=== PATIENT | female | born 1990 | race African-American/Black ===

== ENCOUNTER 2016-09-16 12:26 | Emergency (ER) | payer MEDICAID ==
[~2016-09-16] VITALS: Ht 170.2 cm; Wt 59.4 kg
[~2016-09-16 12:26] MED LIST: ACETAMINOPHEN-1 EAC1 ORAL; ALBUTEROL SULF8.5 GM INH; ALBUTEROL2.5 MG/3 M INH; CLARITIN10 M2 ORAL; CYCLOBENZAPRINE10 MG ORAL; GUAIFENESIN-CO118 M1 ORAL; GUAIFENESIN1200 MG PO; IBUPROFEN600 MG ORAL; KEFLEX500 MG ORAL; NAPROXEN500 M2 ORAL; NKM; PROAIR HFA8.5 GM INH; PROMETHAZINE-C118 M1 ORAL; PROVERA10 MG ORAL; ROBITUSSIN COU118 M4 PO; ZITHROMAX250 MG ORAL; ZYRTEC-D TABLE1 EACH ORAL
--- NOTE | 2016-09-16 12:50 | Emergency Room Report ---
History of Present Illness General Chief Complaint: Lower Extremity Injury Source: Patient Present Illness HPI 26 female presents to emergency Department complaining of pain, swelling, tenderness 10/ 10 in severity to the right heel x1 week status post kicking a tile wall at the back of her heel. She states pain is exacerbated upon weightbearing. She denies previous injury to the right foot. Patient reports bruising initially which has slowly subsided. Denies numbness tingling or loss of sensation or gross motor movements of the extremities, incontinence of bowel or bladder. Denies CP, Palpitations, LOC, AMS, dizziness, Changes in Vision, Sensation, paresthesias, or a sudden severe headache. Allergies: Coded Allergies: No Known Allergies (Unverified , 06/02/13) Patient History Past Medical History: see triage record Past Surgical History: none Pertinent Family History: none Last Menstrual Period: 12-7 Now: No Reviewed Nursing Documentation: PMH: Agreed, PSxH: Agreed Nursing Documentation-PMH Past Medical History: No History, Except For Hx Cardiac Problems: No Hx Hypertension: No Hx Pacemaker: No Hx Asthma: Yes Hx COPD: No Hx Diabetes: No Hx Cancer: No Hx Gastrointestinal Problems: No Hx Dialysis: No Hx Neurological Problems: Yes - anxiety Hx Cerebrovascular Accident: No Hx Seizures: No Review of Systems All Other Systems: negative except mentioned in HPI Physical Exam Vital Signs Date Time Temp Pulse Resp B/P Pulse Ox O2 Delivery O2 Flow Rate FiO2 09/16/16 12:35 98.4 90 18 123/80 98 Room Air Sp02 EP Interpretation: reviewed, normal General Appearance: no apparent distress, alert, GCS 15, non-toxic Head: normocephalic, atraumatic Eyes: bilateral eye PERRL, bilateral eye normal inspection ENT: hearing grossly normal, normal pharynx, no angioedema, normal voice Neck: full range of motion, supple/symm/no masses Respiratory: chest non-tender, lungs clear, normal breath sounds, speaking full sentences Cardiovascular #1: regular rate, rhythm, no edema Cardiovascular #2: 2+ radial (R), 2+ radial (L), 2+ dorsalis pedis (R), 2+ dorsalis pedis (L) Gastrointestinal: normal bowel sounds, non tender, soft, no guarding, no rebound Rectal: deferred Genitourinary: normal inspection, no CVA tenderness Musculoskeletal: back normal, gait/station normal, normal range of motion, no calf tenderness, swelling - right heel, tender - TTP to right heel Neurologic: alert, oriented x3, responsive, motor strength/tone normal, sensory intact, speech normal Psychiatric: judgement/insight normal, memory normal, mood/affect normal, no suicidal/homicidal ideation Skin: normal color, no rash, warm/dry, well hydrated Lymphatic: no adenopathy Medical Decision Making PA Attestation Dr. Ferrer is my supervising Physician whom patient management has been discussed with. Diagnostic Impression: Primary Impression: Contusion of right heel Qualified Codes: S90.31XA - Contusion of right foot, initial encounter ER Course Pt. presents to the ED c/o of pain x1 week status post kicking a tall with back of her heel. Ddx considered but are not limited to Fracture, dislocation, contusion, Sprain/ Strain/Spasm, . Vital signs: are WNL, pt. is afebrile H&PE are most consistent with contusion possible fracture Will rule out with imaging ORDERS: - X-ray Right foot 3 views - negative for fx, Dislocation, or significant soft tissue injury, per preliminary read in ED by Dr. Ferrer ED INTERVENTIONS: - she is provided with crutches DISCHARGE: At this time pt. is stable for d/c to home. Will provide printed patient care instructions, and any necessary prescriptions. Care plan and follow up instructions have been discussed with the patient prior to discharge. Last Vital Signs Date Time Temp Pulse Resp B/P Pulse Ox O2 Delivery O2 Flow Rate FiO2 09/16/16 12:35 98.4 90 18 123/80 98 Room Air Disposition: HOME, SELF-CARE Condition: Stable Scripts Ibuprofen* (MOTRIN*) 600 Mg Tablet 600 MG ORAL THREE TIMES A DAY, #30 TAB 0 Refills Prov: Suzi Jauregui P.A. 09/16/16 Hydrocodone Bit/Acetaminophen 5-325* (NORCO 5-325*) 1 Each Tablet 1 TAB ORAL Q6H Y for For Pain, #4 TAB 0 Refills Prov: Suzi Jauregui P.A. 09/16/16 Referrals: KEIRY SANTOS,REFERRING (PCP) Patient Instructions: Foot Contusion Additional Instructions: Take medications as directed. Follow up with PCP in 3-5 days Return sooner to ED if new symptoms occur, or current symptoms become worse. Do not drink alcohol, drive, or operate heavy machinery while taking Tyrone as this may cause drowsiness. Suzi Jauregui. Sep 16, 2016 12:50
[2016-09-16] MEDS ORDERED: IBUPROFEN600 MG ORAL (13:38)
[2016-09-16] MEDS ORDERED: NORCO 5-325 TA1 EACH ORAL (13:38)
[2016-09-16 13:44] VITALS: BP 123/80
--- NOTE | 2016-09-17 09:50 | Diagnostic Imaging Report ---
Indication: PAIN Technique: 3 views right foot Comparison: none Findings: There is soft tissue swelling over the head of the fifth metatarsal. No acute fractures. No dislocations. Joint spaces are preserved. Fourth and fifth distal interphalangeal joints are fused-normal anatomic variant. Impression: No acute bony trauma Soft tissue swelling over the fifth metatarsal head
== END 2016-09-16 13:54 | disposition home or self-care (01) ==
LOC: EMR 12:46
DX: S90.31XA Contusion of right foot, initial encounter (principal); W22.09XA Striking against other stationary object, initial encounter; Y92.89 Other specified places as the place of occurrence of the external cause; Y99.8 Other external cause status; J45.909 Unspecified asthma, uncomplicated; F41.9 Anxiety disorder, unspecified
CPT/HCPCS: 99284

== ENCOUNTER 2016-10-18 16:14 | Emergency (ER) | payer MEDICAID ==
[~2016-10-18] VITALS: Ht 170.2 cm; Wt 58.5 kg
[~2016-10-18 16:14] MED LIST changes: +NORCO 5-325 TA1 EACH ORAL
--- NOTE | 2016-10-18 16:41 | Emergency Room Report ---
History of Present Illness General Chief Complaint: Vaginal Source: Patient Present Illness HPI 26-year-old female presents emergency department complaining of vaginal bleeding x2 weeks. Patient states that approximately one year ago when she received Depo-Provera she had a three-week menstrual cycle required her to go to the ER and receive oral medication to stop the bleeding. Patient reports 2 weeks of nonstop vaginal bleeding describes dark red blood and utilizes approximately 3 pads per day. Patient states that the bleeding has begins to minimize however it has not stopped. Patient reports fatigue and increased tiredness. And states that she believes she has always been borderline anemic. Denies rashes, bruises, or lesions. Denies dysuria, frequency, or urgency. Denies CP, Palpitations, LOC, AMS, dizziness, Changes in Vision, Sensation, paresthesias, or a sudden severe headache. Allergies: Coded Allergies: No Known Allergies (Unverified , 06/02/13) Patient History Past Medical History: see triage record Past Surgical History: none Pertinent Family History: none Last Menstrual Period: aug 22, 2016 Now: No Immunizations: UTD Reviewed Nursing Documentation: PMH: Agreed, PSxH: Agreed Nursing Documentation-PMH Past Medical History: No History, Except For Hx Cardiac Problems: No Hx Hypertension: No Hx Pacemaker: No Hx Asthma: Yes Hx COPD: No Hx Diabetes: No Hx Cancer: No Hx Gastrointestinal Problems: No Hx Dialysis: No Hx Neurological Problems: Yes - anxiety Hx Cerebrovascular Accident: No Hx Seizures: No Review of Systems All Other Systems: negative except mentioned in HPI Physical Exam Vital Signs Date Time Temp Pulse Resp B/P Pulse Ox O2 Delivery O2 Flow Rate FiO2 10/18/16 16:18 98.4 106 21 116/82 98 Room Air Sp02 EP Interpretation: reviewed, normal General Appearance: no apparent distress, alert, GCS 15, non-toxic Head: normocephalic, atraumatic Eyes: bilateral eye PERRL, bilateral eye normal inspection ENT: hearing grossly normal, normal pharynx, no angioedema, normal voice Neck: full range of motion, supple/symm/no masses Respiratory: chest non-tender, lungs clear, normal breath sounds, speaking full sentences Cardiovascular #1: regular rate, rhythm, no edema Gastrointestinal: normal bowel sounds, non tender, soft, no guarding, no rebound Rectal: deferred Genitourinary: normal inspection, no CVA tenderness, adnexa normal, cervix normal, ext genitalia/vag normal, other - No CMT, + blood in the vaginal vault. Musculoskeletal: back normal, gait/station normal, normal range of motion, non- tender, no calf tenderness Neurologic: alert, oriented x3, responsive, motor strength/tone normal, sensory intact, speech normal Psychiatric: judgement/insight normal, memory normal, mood/affect normal, no suicidal/homicidal ideation Skin: normal color, no rash, warm/dry, well hydrated Lymphatic: no adenopathy Medical Decision Making PA Attestation Dr. gaona is my supervising Physician whom patient management has been discussed with. Diagnostic Impression: Primary Impression: Abnormal uterine bleeding ER Course Pt. presents to the ED c/o vaginal bleeding: x 2 weeks dark red blood with cramping. Ddx considered but are not limited to: Fibroid, ectopic , Malignancy, Spontaneous , , DUB Vital signs: are WNL, pt. is afebrile Pelvic Exam: No CMT, + blood in the vaginal vault. H&PE are most consistent with: DUB ORDERS: - CBC: unremarkable no evidence of significant blood loss or anemia -PT/PTT: WNL -Urine Hcg:Negative -Canceled- Type and Screen: specimen was canceled ED INTERVENTIONS: None at this time. - D/w pt. the results of her laboratory work , in addition to proper follow up with OBGYN. DISCHARGE: At this time pt. is stable for d/c to home. Will provide printed patient care instructions, and any necessary prescriptions. Care plan and follow up instructions have been discussed with the patient prior to discharge. Labs Test 10/18/16 16:47 10/18/16 16:57 Urine Color Pale yellow Urine Appearance Clear Urine pH 8 (4.5-8.0) Urine Specific [place] 1.010 (1.005-1.035) Urine Protein Negative (NEGATIVE) Urine Glucose (UA) Negative (NEGATIVE) Urine Ketones Negative (NEGATIVE) Urine Occult Blood 5+ (NEGATIVE) Urine Nitrite Negative (NEGATIVE) Urine Bilirubin Negative (NEGATIVE) Urine Urobilinogen Normal MG/DL (0.0-1.0) Urine Leukocyte Esterase 1+ (NEGATIVE) Urine RBC 0-2 /HPF (0 - 2) Urine WBC 0-2 /HPF (0 - 2) Urine Squamous Epithelial Cells Moderate /LPF (NONE/OCC) Urine Bacteria Few /HPF (NONE) Urine HCG, Qualitative Negative White Blood Count 4.9 K/UL (4.8-10.8) Red Blood Count 3.97 M/UL (4.20-5.40) Hemoglobin 13.4 G/DL (12.0-16.0) Hematocrit 39.1 % (37.0-47.0) Mean Corpuscular Volume 99 FL (80-99) Mean Corpuscular Hemoglobin 33.8 PG (27.0-31.0) Mean Corpuscular Hemoglobin Concent 34.3 G/DL (32.0-36.0) Red Cell Distribution Width 10.8 % (11.6-14.8) Platelet Count 231 K/UL (150-450) Mean Platelet Volume 7.3 FL (6.5-10.1) Neutrophils (%) (Auto) 49.1 % (45.0-75.0) Lymphocytes (%) (Auto) 44.1 % (20.0-45.0) Monocytes (%) (Auto) 5.7 % (1.0-10.0) Eosinophils (%) (Auto) 0.6 % (0.0-3.0) Basophils (%) (Auto) 0.4 % (0.0-2.0) Prothrombin Time 11.0 SEC (9.30-11.50) Prothromb Time International Ratio 1.1 (0.9-1.1) Activated Partial Thromboplast Time 27 SEC (23-33) Last Vital Signs Date Time Temp Pulse Resp B/P Pulse Ox O2 Delivery O2 Flow Rate FiO2 10/18/16 16:18 98.4 106 21 116/82 98 Room Air Disposition: HOME, SELF-CARE Condition: Stable Scripts Medroxyprogesterone Acet* (PROVERA*) 10 Mg Tablet 10 MG ORAL DAILY, #3 TAB 0 Refills Prov: Suzi Jauregui 10/18/16 Patient Instructions: Abnormal Uterine Bleeding, [id number] Additional Instructions: Take medications as directed. Follow up with OBGYN in 2-3 days Return sooner to ED if new symptoms occur, or current symptoms become worse. Suzi Jauregui Oct 18, 2016 16:41
[2016-10-18 17:11] LABS: BASOPHILS % (AUTO) 0.4 % (0.0-2.0); EOSINOPHILS % (AUTO) 0.6 % (0.0-3.0); LYMPHOCYTES % (AUTO) 44.1 % (20.0-45.0); MEAN CORPUSCULAR HEMOGLOBIN 33.8 PG (27.0-31.0); MEAN CORPUSCULAR HGB CONC 34.3 G/DL (32.0-36.0); MEAN CORPUSCULAR VOLUME 99 FL (80-99); MEAN PLATELET VOLUME 7.3 FL (6.5-10.1); MONOCYTES % (AUTO) 5.7 % (1.0-10.0); NEUTROPHILS % (AUTO) 49.1 % (45.0-75.0); PLATELET COUNT 231 K/UL (150-450); RED BLOOD COUNT 3.97 M/UL (4.20-5.40); RED CELL DISTRIBUTION WIDTH 10.8 % (11.6-14.8); WHITE BLOOD COUNT 4.9 K/UL (4.8-10.8)
[2016-10-18 17:21] VITALS: BP 119/85
[2016-10-18 17:22] LABS: APPEARANCE,URINE CLEAR; KETONES,URINE NEGATIVE (NEGATIVE); LEUKOCYTE ESTERASE ,URINE 1+ (NEGATIVE); NITRITE,URINE NEGATIVE (NEGATIVE); PH,URINE 8 (4.5-8.0); PROTEIN,URINE NEGATIVE (NEGATIVE); UROBILINOGEN,URINE NORMAL MG/DL (0.0-1.0)
[2016-10-18 17:28] LABS: RBC,URINE 0-2 /HPF (0 - 2); SQUAMOUS EPITHELIAL CELL,UR MODERATE /LPF (NONE/OCC); WBC,URINE 0-2 /HPF (0 - 2)
[2016-10-18 17:29] LABS: BACTERIA,URINE FEW /HPF
[2016-10-18 17:37] LABS: INR 1.1 (0.9-1.1)
[2016-10-18] MEDS ORDERED: PROVERA10 MG ORAL (17:37)
[2016-10-18 17:57] VITALS: BP 119/85
== END 2016-10-18 17:58 | disposition home or self-care (01) ==
LOC: EMR 17:51
DX: N93.9 Abnormal uterine and vaginal bleeding, unspecified (principal); F41.9 Anxiety disorder, unspecified; J45.909 Unspecified asthma, uncomplicated
CPT/HCPCS: 36415; 81003; 81025; 85025; 85610; 85730; 86850; 86900; 86901; 99283

== ENCOUNTER 2017-02-19 12:49 | Emergency (ER) | payer MEDICAID ==
[~2017-02-19] VITALS: Ht 172.7 cm; Wt 61.2 kg
[2017-02-19 13:14] VITALS: BP 124/78
[2017-02-19] MEDS ORDERED: ALBUTEROL SULF8.5 GM INH (13:17)
[2017-02-19] MEDS ORDERED: ZITHROMAX250 MG ORAL (13:17)
[2017-02-19] MEDS ORDERED: ZYRTEC10 MG ORAL (13:17)
--- NOTE | 2017-02-19 13:18 | Emergency Room Report ---
History of Present Illness General Chief Complaint: Pain Source: Patient Present Illness HPI 26 y/o female c/o ear pain and URI sxs x 2 weeks. Assoc sxs include SOB, bilateral ear pain, and sinus congestion. States that she is taking OTC medications w/o relief, name of medications are unknown. States there are no modifying factors and states she also has dental pain and has an appt with dentist in 1 hour. States she currently has mild SOB, inability to take a full breath but declines breathing treatment due to dentist appointment stating she would be ok with an Rx for an inhaler. Denies any current n/v/f/c/d, abd pain, back pain, neck pain, photophobia, phonophobia, CP or headache. Allergies: Coded Allergies: No Known Allergies (Unverified , 06/02/13) Patient History Past Medical History: see triage record Past Surgical History: none Pertinent Family History: none Last Menstrual Period: irreg Now: No Immunizations: UTD Reviewed Nursing Documentation: PMH: Agreed, PSxH: Agreed Nursing Documentation-PMH Hx Cardiac Problems: No Hx Hypertension: No Hx Pacemaker: No Hx Asthma: Yes Hx COPD: No Hx Diabetes: No Hx Cancer: No Hx Gastrointestinal Problems: No Hx Dialysis: No Hx Neurological Problems: Yes - anxiety Hx Cerebrovascular Accident: No Hx Seizures: No Review of Systems All Other Systems: negative except mentioned in HPI Physical Exam Vital Signs Date Time Temp Pulse Resp B/P Pulse Ox O2 Delivery O2 Flow Rate FiO2 02/19/17 12:54 98.8 114 18 120/80 98 Room Air Sp02 EP Interpretation: reviewed, normal General Appearance: no apparent distress, alert, GCS 15, non-toxic Head: normocephalic, atraumatic Eyes: bilateral eye PERRL, bilateral eye normal inspection ENT: hearing grossly normal, normal pharynx, no angioedema, normal voice, nasal congestion, other - Bilateral TMs red and bulging Neck: full range of motion, supple/symm/no masses Respiratory: chest non-tender, rales - ALEX w/ egophony, speaking full sentences Musculoskeletal: gait/station normal Neurologic: alert, oriented x3, responsive, motor strength/tone normal, sensory intact, speech normal Psychiatric: judgement/insight normal, memory normal, mood/affect normal, no suicidal/homicidal ideation Skin: normal color, no rash, warm/dry, well hydrated Medical Decision Making PA Attestation Dr. Hobbs is my supervising physician with whom patient management has been discussed with. Diagnostic Impression: Primary Impression: Otitis media Qualified Codes: H65.113 - Acute and subacute allergic otitis media (mucoid) ( sanguinous) (serous), bilateral Additional Impression: CAP (community acquired pneumonia) ER Course Pt. presents to the ED c/o of cough and congestion Ddx considered but are not limited to bronchitis, pneumonia, viral upper respiratory tract infection Vital signs: are WNL, pt. is afebrile H&PE are most consistent with pneumonia and AOM ORDERS: none required at this time, the diagnosis is clinical ED INTERVENTIONS: None required at this time. DISCHARGE: At this time pt. is stable for d/c to home. Will provide printed patient care instructions, and any necessary prescriptions. Care plan and follow up instructions have been discussed with the patient prior to discharge. Last Vital Signs Date Time Temp Pulse Resp B/P Pulse Ox O2 Delivery O2 Flow Rate FiO2 02/19/17 13:25 98.7 106 17 124/78 99 Room Air Status: unchanged Disposition: HOME, SELF-CARE Condition: Stable Scripts Cetirizine Hcl* (ZYRTEC*) 10 Mg Tablet 10 MG ORAL DAILY, #14 TAB 0 Refills Prov: SABRY,TAMEEM P.A. 02/19/17 Albuterol Sulfate* (ALBUTEROL SULFATE MDI*) 8.5 Gm Hfa.aer.ad 2 PUFF INH Q4H, #1 INH 0 Refills Prov: SABRY,TAMEEM P.A. 02/19/17 Azithromycin* (ZITHROMAX*) 250 Mg Tablet 250 MG ORAL DAILY, #6 TAB 0 Refills Take two tables once daily for 1 day, then one tablet once daily for 4 days. Prov: SABRY,TAMEEM P.A. 02/19/17 Referrals: KEIRY SANTOS,REFERRING (PCP) Additional Instructions: Take medication as directed. Patient advised that most of the time, symptoms start to improve in 7 to 10 days. Patient should return to clinic if their symptoms last more than 10 days, or if your symptoms get better at first but then get worse. Patient instructed to take an [id number] pain reliever to reduce the pain, and to rinse your nose and sinuses with salt water a few times a day. Go to the ER if you experience any: fever higher than 102.5, sudden and severe pain in the face and head, trouble seeing or seeing double, trouble thinking clearly, swelling or redness around one or both eyes, or trouble breathing or a stiff neck. Drink plenty of fluids which include Gatorade and water. Get plenty of rest. Avoid taking medications on an empty stomach. If you have cough avoid dairy and cold beverages. If you have a fever, headache or body aches please take vqro-eqz-xzoyqqe tylenol/motrin/advil unless a prescription for these symptoms have been given. If your symptoms are worsening or you have shortness or breath, severe headaches or chest pain, please call 911 or go to the ER. ERIC VELAZQUEZ Feb 19, 2017 13:18
[2017-02-19 13:25] VITALS: BP 124/78
== END 2017-02-19 13:25 | disposition home or self-care (01) ==
LOC: EMR 13:09
DX: H65.113 Acute and subacute allergic otitis media (mucoid) (sanguinous) (serous), bilateral (principal); J18.9 Pneumonia, unspecified organism
CPT/HCPCS: 99284

== ENCOUNTER 2017-08-17 15:13 | Emergency (ER) | payer MEDICAID ==
[~2017-08-17] VITALS: Ht 162.6 cm; Wt 54.4 kg
[~2017-08-17 15:13] MED LIST changes: +ZYRTEC10 MG ORAL
[2017-08-17 15:25] VITALS: BP 117/76
[2017-08-17] MEDS ORDERED: PROMETHAZINE-D118 ML ORAL (16:04)
[2017-08-17] MEDS ORDERED: FLONASE ALLERG9.9 ML NS (16:04)
[2017-08-17] MEDS ORDERED: PROAIR HFA8.5 GM INH (16:04)
[2017-08-17] MEDS ORDERED: IBUPROFEN600 MG ORAL (16:13)
[2017-08-17 16:36] VITALS: BP 121/72
--- NOTE | 2017-08-17 20:18 | Emergency Room Report ---
History of Present Illness General Chief Complaint: Upper Respiratory Illness Source: Patient Present Illness HPI The patient is a 27-year-old female presenting for cough for the past week. She denies any known sick contacts or recent travel. She admits to having asthma but has not used albuterol as she has run out. She describes pain as an 8/10 dull ache in the chest which occurs with coughing only. Pain does not radiate. She denies any other symptoms including nausea, vomiting, fever, chills, shortness of breath. She does admit to nasal congestion and some sneezing. Allergies: Coded Allergies: No Known Allergies (Unverified , 06/02/13) Patient History Past Medical History: see triage record Pertinent Family History: none Last Menstrual Period: on period Reviewed Nursing Documentation: PMH: Agreed, PSxH: Agreed Nursing Documentation-PMH Past Medical History: No History, Except For Hx Cardiac Problems: No Hx Hypertension: No Hx Pacemaker: No Hx Asthma: Yes Hx COPD: No Hx Diabetes: No Hx Cancer: No Hx Gastrointestinal Problems: No Hx Dialysis: No History Of Psychiatric Problem: Yes - Anxiety Hx Neurological Problems: Yes - anxiety Hx Cerebrovascular Accident: No Hx Seizures: No Review of Systems All Other Systems: negative except mentioned in HPI Physical Exam Vital Signs Date Time Temp Pulse Resp B/P (MAP) Pulse Ox O2 Delivery O2 Flow Rate FiO2 08/17/17 15:25 98.8 16 117/76 97 Room Air 08/17/17 15:25 76 Sp02 EP Interpretation: reviewed, normal General Appearance: no apparent distress, alert, GCS 15, non-toxic Head: normocephalic, atraumatic Eyes: bilateral eye normal inspection, bilateral eye PERRL ENT: hearing grossly normal, normal pharynx, no angioedema, normal voice, nasal congestion Neck: full range of motion, supple/symm/no masses Respiratory: chest non-tender, lungs clear, normal breath sounds, speaking full sentences Cardiovascular #1: regular rate, rhythm, no edema Gastrointestinal: normal bowel sounds, non tender, soft, non-distended, no guarding, no rebound Rectal: deferred Musculoskeletal: back normal, gait/station normal, normal range of motion, non- tender Neurologic: alert, oriented x3, responsive, motor strength/tone normal, sensory intact, speech normal Psychiatric: judgement/insight normal, memory normal, mood/affect normal, no suicidal/homicidal ideation Skin: normal color, no rash, warm/dry, well hydrated Medical Decision Making PA Attestation Dr. Addison is my supervising physician. Patient management was discussed with my supervising physician Diagnostic Impression: Primary Impression: Asthma Qualified Codes: J45.21 - Mild intermittent asthma with (acute) exacerbation Additional Impression: Allergic rhinitis Qualified Codes: J30.2 - Other seasonal allergic rhinitis ER Course The patient is a 27-year-old female presenting for cough for the past week. Differential diagnoses considered but not limited to: Asthma exacerbation, bronchitis, pneumonia, rhinitis Physical exam: Vitals within normal limits. No apparent distress HEENT shows nasal congestion and edema Lungs: Decreased breath sounds bilaterally. Chest is nontender. No respiratory distress. No accessory muscle use. Patient is discharged home with a prescription for albuterol and flonase and cough medication and will followup with PMD. ER precautions are given Last Vital Signs Date Time Temp Pulse Resp B/P (MAP) Pulse Ox O2 Delivery O2 Flow Rate FiO2 08/17/17 16:36 98.8 70 15 121/72 98 Room Air Status: improved Disposition: HOME, SELF-CARE Condition: Improved Scripts Ibuprofen* (MOTRIN*) 600 Mg Tablet 600 MG ORAL Q8H Y for For Pain, #30 TAB 0 Refills Prov: TERZIAN,TOVA P.A. 08/17/17 Fluticasone Propionate (Flonase Allergy Relief) 9.9 Ml [place].susp 1 SPR NS DAILY, #10 ML Prov: TERZIAN,TOVA P.A. 08/17/17 D-Methorphan Hb/Prometh Hcl* (PROMETHAZINE-DM SYRUP*) 118 Ml Syrup 5 ML ORAL Q6H Y for For Cough, #118 ML 0 Refills Prov: TERZIAN,TOVA P.A. 08/17/17 Albuterol Sulfate* (PROAIR HFA*) 8.5 Gm Hfa.aer.ad 2 PUFFS INH Q6H, #8.5 GM 0 Refills Prov: TERZIAN,TOVA P.A. 08/17/17 Referrals: KEIRY SANTOS,REFERRING (PCP) Patient Instructions: Asthma, Adult, Allergic Rhinitis Additional Instructions: I discussed my findings with the patient. All questions and concerns have been answered. Treatment and medication compliance have been addressed. I advised the patient that they need to follow up with PMD in 3-5 days. Return to ED if symptoms worsen, new symptoms arise, or if needed for any reason. Patient verbalized understanding of discharge instructions. TOVA HERNANDEZ Aug 17, 2017 20:18
== END 2017-08-17 16:36 | disposition home or self-care (01) ==
LOC: EMR 16:30
DX: J45.909 Unspecified asthma, uncomplicated (principal); J30.9 Allergic rhinitis, unspecified
CPT/HCPCS: 99284

== ENCOUNTER 2017-09-06 12:39 | Emergency (ER) | payer MEDICAID ==
[~2017-09-06] VITALS: Ht 172.7 cm; Wt 63.0 kg
[~2017-09-06 12:39] MED LIST changes: +FLONASE ALLERG9.9 ML NS; +PROMETHAZINE-D118 ML ORAL
[2017-09-06 12:49] VITALS: BP 109/72
[2017-09-06] MEDS ORDERED: PROMETHAZINE-D118 ML ORAL (13:21)
[2017-09-06] MEDS ORDERED: LORATADINE10 M2 PO (13:21)
[2017-09-06] MEDS ORDERED: VENTOLIN HFA18 GM INH (13:21)
[2017-09-06 13:26] VITALS: BP 109/72
--- NOTE | 2017-09-06 21:17 | Emergency Room Report ---
History of Present Illness General Chief Complaint: Upper Respiratory Illness Source: Patient Present Illness HPI The patient is a 27-year-old female with a history of asthma presenting for 2 weeks of cough. She denies any known sick contacts or recent travel. Pain is a 3/10 dull ache in the chest and occurs with coughing only.She states that she ran out of albuterol which usually helps. She denies any other symptoms including fever, chills, shortness of breath, rash, dizziness Allergies: Coded Allergies: No Known Allergies (Unverified , 06/02/13) Patient History Past Medical History: see triage record Pertinent Family History: none Now: No Reviewed Nursing Documentation: PMH: Agreed, PSxH: Agreed Nursing Documentation-PMH Past Medical History: No History, Except For Hx Cardiac Problems: No Hx Hypertension: No Hx Pacemaker: No Hx Asthma: Yes Hx COPD: No Hx Diabetes: No Hx Cancer: No Hx Gastrointestinal Problems: No Hx Dialysis: No Hx Neurological Problems: Yes - anxiety Hx Cerebrovascular Accident: No Hx Seizures: No Review of Systems All Other Systems: negative except mentioned in HPI Physical Exam Vital Signs Date Time Temp Pulse Resp B/P (MAP) Pulse Ox O2 Delivery O2 Flow Rate FiO2 09/06/17 12:41 98.8 76 17 109/72 96 Room Air Sp02 EP Interpretation: reviewed, normal General Appearance: no apparent distress, alert, GCS 15, non-toxic Head: normocephalic, atraumatic Eyes: bilateral eye normal inspection, bilateral eye PERRL ENT: hearing grossly normal, normal pharynx, no angioedema, normal voice, nasal congestion Neck: full range of motion, supple/symm/no masses Respiratory: chest non-tender, lungs clear, normal breath sounds, speaking full sentences, wheezing - bilat Cardiovascular #1: regular rate, rhythm, no edema Musculoskeletal: back normal, gait/station normal, normal range of motion, non- tender Neurologic: alert, oriented x3, responsive, motor strength/tone normal, sensory intact, speech normal Psychiatric: judgement/insight normal, memory normal, mood/affect normal, no suicidal/homicidal ideation Skin: normal color, no rash, warm/dry, well hydrated Medical Decision Making PA Attestation Dr. Addison is my supervising physician. Patient management was discussed with my supervising physician Diagnostic Impression: Primary Impression: Asthma Qualified Codes: J45.21 - Mild intermittent asthma with (acute) exacerbation ER Course The patient is a 27-year-old female with a history of asthma presenting for 2 weeks of cough. Differential diagnoses considered but not limited to: Asthma exacerbation, bronchitis, pneumonia, anxiety Physical exam: Vitals within normal limits. No apparent distress HEENT exam is unremarkable except for nasal congestion Lungs: Decreased breath sounds bilaterally. Chest is nontender. No respiratory distress. No accessory muscle use. The patient was given a breathing treatment and is feeling much better. Lungs sounds have increased Patient is discharged home with a prescription for albuterol, claritin, and cough medication and will followup with PMD. ER precautions are given Last Vital Signs Date Time Temp Pulse Resp B/P (MAP) Pulse Ox O2 Delivery O2 Flow Rate FiO2 09/06/17 13:26 98.8 76 17 109/72 96 Room Air Status: improved Disposition: HOME, SELF-CARE Condition: Improved Scripts Albuterol Sulfate (VENTOLIN HFA) 18 Gm Hfa.aer.ad 2 PUFFS INH EVERY 6 HOURS, #18 GM 0 Refills Prov: TOVA HERNANDEZ 09/06/17 D-Methorphan Hb/Prometh Hcl* (PROMETHAZINE-DM SYRUP*) 118 Ml Syrup 5 ML ORAL Q6H Y for For Cough, #118 ML 0 Refills Prov: TOVA HERNANDEZ.Turner 09/06/17 Loratadine (LORATADINE) 10 Mg Tablet 10 MG PO DAILY, #14 TAB Prov: TOVA HERNANDEZ.A. 09/06/17 Referrals: KEIRY SANTOS,REFERRING (PCP) Patient Instructions: Asthma, Adult Additional Instructions: I discussed my findings with the patient. All questions and concerns have been answered. Treatment and medication compliance have been addressed. I advised the patient that they need to follow up with PMD in 3-5 days. Return to ED if symptoms worsen, new symptoms arise, or if needed for any reason. Patient verbalized understanding of discharge instructions. TOVA HERNANDEZ Sep 06, 2017 21:17
== END 2017-09-06 13:26 | disposition home or self-care (01) ==
LOC: EMR 13:05
DX: J45.909 Unspecified asthma, uncomplicated (principal)
CPT/HCPCS: 99283

== ENCOUNTER 2018-01-21 11:20 | Emergency (ER) | payer MEDICAID ==
[~2018-01-21] VITALS: Ht 157.5 cm; Wt 56.7 kg
[~2018-01-21 11:20] MED LIST changes: +LORATADINE10 M2 PO; +VENTOLIN HFA18 GM INH
--- NOTE | 2018-01-21 11:54 | Emergency Room Report ---
History of Present Illness General Chief Complaint: Pain Source: Patient Present Illness HPI Patient present with complaints of left ankle pain She reports that she thinks she injured the ankle about one year ago More recently with increased ambulation she's any pain to the lateral part of the ankle wraps around across the front to the medial aspect also has some pain to the back of the ankle Denies any acute recent trauma to it Denies any knee pain Patient reports that she wants to make sure there is nothing wrong with her ankle Allergies: Coded Allergies: No Known Allergies (Unverified , 06/02/13) Patient History Past Medical History: see triage record Pertinent Family History: none Reviewed Nursing Documentation: PMH: Agreed; PSxH: Agreed Nursing Documentation-PMH Hx Cardiac Problems: No Hx Hypertension: No Hx Pacemaker: No Hx Asthma: Yes Hx COPD: No Hx Diabetes: No Hx Cancer: No Hx Gastrointestinal Problems: No Hx Dialysis: No Hx Neurological Problems: Yes - anxiety Hx Cerebrovascular Accident: No Hx Seizures: No Review of Systems All Other Systems: negative except mentioned in HPI Physical Exam Vital Signs Date Time Temp Pulse Resp B/P (MAP) Pulse Ox O2 Delivery O2 Flow Rate FiO2 01/21/18 11:34 98.2 89 20 116/73 96 Room Air 98.2 Sp02 EP Interpretation: reviewed, normal General Appearance: well appearing, no apparent distress Head: normocephalic, atraumatic Eyes: bilateral eye PERRL, bilateral eye EOMI ENT: normal pharynx, no angioedema Neck: supple Respiratory: lungs clear Musculoskeletal: other - Patient has full flexion and extension intact, left ankle, ambulated to the emergency room without focal deficit, I do not appreciate any obvious edema however patient feels there is some swelling compared to right side, neurovascularly intact no ecchymosis Neurologic: alert, oriented x3, motor strength/tone normal Skin: normal color, no rash Lymphatic: no adenopathy Procedures Splinting Splinting : Consent: Verbal Location: Left ankle Pre-Made Type: aircast Splint: sugar-tong Pre-Proc Neuro Vasc Exam: normal Post-Proc Neuro Vasc Exam: normal Patient Tolerated: Well Complications: None Medical Decision Making Diagnostic Impression: Primary Impression: Ankle sprain ER Course Patient presents with somewhat of a fairly chronic pathology However her discomfort has been more acutely uncomfortable imaging is obtained does not show any obvious acute pathology Patient is splinted given her discomfort and provided with outpatient referral Other X-Ray Diagnostic Results Other X-Ray Diagnostic Results : X-Ray ordered: Left ankle # of Views/Limited Vs Complete: 3 View Indication: Pain EP Interpretation: Yes Interpretation: no dislocation, no soft tissue swelling, no fractures Impression: No acute disease Electronically Signed by: Sophie Ferrer DO Last Vital Signs Date Time Temp Pulse Resp B/P (MAP) Pulse Ox O2 Delivery O2 Flow Rate FiO2 01/21/18 11:34 98.2 89 20 116/73 96 Room Air 98.2 Status: improved Disposition: HOME, SELF-CARE Condition: Improved Scripts Ibuprofen* (MOTRIN*) 600 Mg Tablet 600 MG ORAL Q8H PRN for For Pain, #20 TAB 0 Refills Prov: Sophie Ferrer DO 01/21/18 Additional Instructions: Patient is provided with the discharge instructions notified to follow up with primary doctor in the next 2-3 days otherwise return to the er with any worsening symptoms. Please note that this report is being documented using [employer] technology. This can lead to erroneous entry secondary to incorrect interpretation by the dictating instrument. Sophie Ferrer DO January 21, 2018 11:54
[2018-01-21] MEDS ORDERED: IBUPROFEN600 MG ORAL (12:19)
[2018-01-21 12:53] VITALS: BP 116/73
--- NOTE | 2018-01-21 14:22 | Diagnostic Imaging Report ---
Indication: left ankle pain Comparison: None Findings: 3 views of the left ankle obtained. No acute fracture, malalignment, periostitis, or osteochondral defects are identified. Soft tissues are unremarkable. Impression: No acute findings
== END 2018-01-21 12:45 | disposition home or self-care (01) ==
LOC: EMR 12:32
DX: S93.402A Sprain of unspecified ligament of left ankle, initial encounter (principal); X58.XXXA Exposure to other specified factors, initial encounter; Y92.9 Unspecified place or not applicable; J45.909 Unspecified asthma, uncomplicated
CPT/HCPCS: 99283

== ENCOUNTER 2018-02-10 14:07 | Emergency (ER) | payer MEDICAID ==
[~2018-02-10] VITALS: Ht 175.3 cm; Wt 57.2 kg
[2018-02-10 14:16] VITALS: BP 115/78
--- NOTE | 2018-02-10 14:28 | Emergency Room Report ---
History of Present Illness General Chief Complaint: Upper Respiratory Illness Source: Patient, Medical Record Present Illness HPI Patient is a 27-year-old female who presented after increased chest tightness. Patient reports being a smoker and states she smokes marijuana cigarettes laced once daily. She reports of the patient reports subjective fever. The she reports having intermittent chronic cough. She had associated rash to her upper extremities which began prior to onset of cough. Patient reports having increased mucus production. The patient denies being and denies any recent leg pain or swelling. The cough productive of yellow-green sputum. Allergies: Coded Allergies: No Known Allergies (Unverified , 06/02/13) Patient History Past Medical History: see triage record Last Menstrual Period: 02/04/18 Reviewed Nursing Documentation: PMH: Agreed; PSxH: Agreed Nursing Documentation-PMH Past Medical History: No History, Except For Hx Cardiac Problems: No Hx Hypertension: No Hx Pacemaker: No Hx Asthma: Yes Hx COPD: No Hx Diabetes: No Hx Cancer: No Hx Gastrointestinal Problems: No Hx Dialysis: No Hx Neurological Problems: Yes - anxiety Hx Cerebrovascular Accident: No Hx Seizures: No Review of Systems All Other Systems: negative except mentioned in HPI Physical Exam Vital Signs Date Time Temp Pulse Resp B/P (MAP) Pulse Ox O2 Delivery O2 Flow Rate FiO2 02/10/18 14:10 98.7 100 18 115/78 97 Room Air 98.8 General Appearance: well appearing, no apparent distress, alert, GCS 15, thin Head: normocephalic, atraumatic ENT: hearing grossly normal, normal voice Neck: full range of motion, supple Respiratory: no respiratory distress, speaking full sentences Cardiovascular #1: normal peripheral pulses, no edema Gastrointestinal: normal inspection Musculoskeletal: normal inspection, back normal, digits/nails normal, no calf tenderness Neurologic: normal inspection, alert, oriented x3, responsive, buzzle buffer III-XII nml as tested, normal gait Psychiatric: mood/affect normal Skin: no rash Medical Decision Making Diagnostic Impression: Primary Impression: Bronchitis ER Course Patient presented for increased cough.Differential diagnosis included but was not limited to bronchitis, pneumonia, pulmonary embolism, pericarditis, asthma, foreign body. Patient has a benign exam and does not appear to require any Laboratory testing at this time.The patient appears to have a exacerbation of her chronic lung disease. The patient was given breathing treatment.The chest x -ray one view read by radiology showed hyperinflation without evident infiltrate. The patient was advised smoking cessation. She was given prescription for allergy medication as well as cough medication. The patient is advised to follow up with primary care doctor in 1-2 days. Patient is advised to return if any worsening condition or if any changes in status that are concerning. This report is dictated with [employer] registered client associate software which may occasionally lead to discrepancies related to use of this software. Labs Test 02/10/18 14:26 Urine HCG, Qualitative Negative (NEGATIVE) Chest X-Ray Diagnostic Results Chest X-Ray Diagnostic Results : Chest X-Ray Ordered: Yes # of Views/Limited/Complete: 1 View Indication: Chest Pain EP Interpretation: Yes Interpretation: no consolidation, no effusion, no pneumothorax, no acute cardiopulmonary disease Impression: No acute disease Electronically Signed by: Electronically signed by Dr. Alton Hobbs M.D. Last Vital Signs Date Time Temp Pulse Resp B/P (MAP) Pulse Ox O2 Delivery O2 Flow Rate FiO2 02/10/18 14:10 98.7 100 18 115/78 97 Room Air 98.8 Status: improved Disposition: HOME, SELF-CARE Condition: Stable Scripts Loratadine (LORATADINE) 10 Mg Tablet 10 MG PO DAILY, #30 TAB Prov: Alton Hobbs MD 02/10/18 Guaifenesin* (ADULT WAL-TUSSIN*) 100 Mg/5 Ml Liquid 10 ML ORAL Q4H, #200 ML Prov: Alton Hobbs MD 02/10/18 Alton Hobbs MD February 10, 2018 14:28
[2018-02-10] MEDS ORDERED: LORATADINE10 M2 PO (14:30)
[2018-02-10] MEDS ORDERED: Albuterol/Ipratropium 3ml neb HHN ONE (14:30)
[2018-02-10] MEDS ORDERED: ADULT WAL-100 MG/5 M ORAL (14:30)
[2018-02-10 15:18] VITALS: BP 115/78
--- NOTE | 2018-02-11 10:50 | Diagnostic Imaging Report ---
Indication: Dyspnea Comparison: 08/16/2016 A single view chest radiograph was obtained. Findings: Cardiomediastinal appearance is within normal limits for age. Pulmonary vascularity is appropriate. The diaphragmatic contour is smooth and costophrenic angles are sharp. No pleural effusions are identified. The bones are unremarkable. Impression: No acute findings
== END 2018-02-10 15:20 | disposition home or self-care (01) ==
LOC: EMR 14:25
DX: J45.909 Unspecified asthma, uncomplicated (principal)
CPT/HCPCS: 71045; 81025; 94640; 94664; 99284; J7620

== ENCOUNTER 2018-02-22 11:21 | Emergency (ER) | payer MEDICAID ==
[~2018-02-22] VITALS: Ht 172.7 cm; Wt 56.7 kg
[~2018-02-22 11:21] MED LIST changes: +ADULT WAL-100 MG/5 M ORAL
[2018-02-22 11:44] VITALS: BP 108/77
--- NOTE | 2018-02-22 12:23 | Emergency Room Report ---
History of Present Illness General Chief Complaint: Sore Throat Source: Patient Present Illness HPI 27 YO Female presents to the ED c/o 06/25 in severity sore throat s/p multiple episodes of vomiting back to back last night after drinking. Patient denies , denies nausea, abdominal pain or tenderness, constipation or diarrhea. Patient denies blood in her vomit. Patient states that she does not drink regularly. Allergies: Coded Allergies: No Known Allergies (Unverified , 06/02/13) Patient History Past Medical History: see triage record Past Surgical History: none Pertinent Family History: none Last Menstrual Period: 02/07/18 Now: No Reviewed Nursing Documentation: PMH: Agreed; PSxH: Agreed Nursing Documentation-PMH Hx Cardiac Problems: No Hx Hypertension: No Hx Pacemaker: No Hx Asthma: Yes Hx COPD: No Hx Diabetes: No Hx Cancer: No Hx Gastrointestinal Problems: No Hx Dialysis: No Hx Neurological Problems: Yes - anxiety Hx Cerebrovascular Accident: No Hx Seizures: No Review of Systems All Other Systems: negative except mentioned in HPI Physical Exam Vital Signs Date Time Temp Pulse Resp B/P (MAP) Pulse Ox O2 Delivery O2 Flow Rate FiO2 02/22/18 11:44 98.1 73 17 108/77 94 Room Air 98.1 Sp02 EP Interpretation: reviewed, normal General Appearance: no apparent distress, alert, GCS 15, non-toxic Head: normocephalic, atraumatic Eyes: bilateral eye normal inspection, bilateral eye PERRL ENT: hearing grossly normal, normal voice, TMs + canals normal, uvula midline, moist mucus membranes, pharyngeal erythema Neck: full range of motion Respiratory: chest non-tender, lungs clear, normal breath sounds, no wheezing, speaking full sentences Cardiovascular #1: regular rate, rhythm Gastrointestinal: normal bowel sounds, non tender, soft Rectal: deferred Musculoskeletal: back normal, gait/station normal, normal range of motion, non- tender Neurologic: alert, oriented x3, responsive, motor strength/tone normal, sensory intact, speech normal, grossly normal Psychiatric: judgement/insight normal Skin: normal color, no rash, warm/dry, well hydrated Lymphatic: no adenopathy Medical Decision Making PA Attestation Dr. Hobbs is my supervising Physician whom patient management has been discussed with. Diagnostic Impression: Primary Impression: Gastritis Qualified Codes: K29.20 - Alcoholic gastritis without bleeding Additional Impression: Pharyngitis Qualified Codes: J02.9 - Acute pharyngitis, unspecified ER Course 27 YO Female presents to the ED c/o 06/25 in severity sore throat s/p multiple episodes of vomiting back to back last night after drinking. Patient denies , denies nausea, abdominal pain or tenderness, constipation or diarrhea. Patient denies blood in her vomit. Patient states that she does not drink regularly. Ddx considered but are not limited to GE, colitis, acute appy, , SBO, H.pylori, Gastritis, PNA, pericarditis, esophageal tear just to name a few. Vital signs: pt. is afebrile, H&PE are most consistent with Gastritis - no evidence to suggest acute abdomen on physical exam. ORDERS: -Pt. declines testing states she is sure that it was from the ETOH. ED INTERVENTIONS: -None -I do not identify an emergent condition at this time. With current presentation , pt. is stable for close outpatient follow up and conservative treatment. D/ w pt. to return promptly to ED with worsening or new symptoms.- Pt. (and or responsible libertarian) verbalizes' understanding and agreement with proposed treatment plan.proposed treatment plan. DISCHARGE: At this time pt. is stable for d/c to home. Will provide printed patient care instructions, and any necessary prescriptions. Care plan and follow up instructions have been discussed with the patient prior to discharge. Last Vital Signs Date Time Temp Pulse Resp B/P (MAP) Pulse Ox O2 Delivery O2 Flow Rate FiO2 02/22/18 11:44 98.1 73 17 108/77 94 Room Air 98.1 Disposition: HOME, SELF-CARE Condition: Stable Scripts Omeprazole (OMEPRAZOLE) 20 Mg Tablet.dr 20 MG ORAL DAILY for 5 Days, #10 TAB Prov: Suzi Jauregui 02/22/18 Vitamin B Complex (B COMPLEX) 1 Each Tablet 1 TAB ORAL DAILY for 30 Days, #30 TAB 0 Refills Prov: Suzi Jauregui 02/22/18 Ondansetron* (ZOFRAN*) 4 Mg Tablet 4 MG ORAL Q6H PRN for Nausea & Vomiting, #10 TAB Prov: Suzi Jauregui 02/22/18 Lidocaine HCl 2% Viscous (Lidocaine HCl 2% Viscous) 100 Ml Solution 15 ML ORAL QID, #200 ML Prov: Suzi Jauregui 02/22/18 Departure Forms: Return to Work Return to Work Date: Feb 24, 2018 Work Restrictions: None Return to Full Activity: Feb 24, 2018 Patient Instructions: Sore Throat Additional Instructions: Take medications as directed. Follow up with a Primary Care Provider in 3-5 days, even if your symptoms have resolved. --Please review list of primary care clinics, if you do not already have a primary care provider Return sooner to ED if new symptoms occur, or current symptoms become worse. - Please note that this Emergency Department Report was dictated using [employer] agent technology software, occasionally this can lead to erroneous entry secondary to interpretation by the dictation equipment. Suzi Jauregui Feb 22, 2018 12:23
[2018-02-22] MEDS ORDERED: B COMPLEX1 EACH ORAL (12:28)
[2018-02-22] MEDS ORDERED: ZOFRAN4 M3 ORAL (12:28)
[2018-02-22] MEDS ORDERED: LIDOCAINE VISC100 ML ORAL (12:28)
[2018-02-22] MEDS ORDERED: OMEPRAZOLE20 M3 ORAL (12:32)
[2018-02-22 12:41] VITALS: BP 108/77
== END 2018-02-22 12:41 | disposition home or self-care (01) ==
LOC: EMR 12:40
DX: J02.9 Acute pharyngitis, unspecified (principal); J45.909 Unspecified asthma, uncomplicated; K29.70 Gastritis, unspecified, without bleeding
CPT/HCPCS: 99284

== ENCOUNTER 2018-04-13 13:57 | Emergency (ER) | payer MEDICAID ==
[~2018-04-13] VITALS: Ht 172.7 cm; Wt 53.5 kg
[~2018-04-13 13:57] MED LIST changes: +B COMPLEX1 EACH ORAL; +LIDOCAINE VISC100 ML ORAL; +OMEPRAZOLE20 M3 ORAL; +ZOFRAN4 M3 ORAL
[2018-04-13 14:21] VITALS: BP 109/46
[2018-04-13 14:41] LABS: APPEARANCE,URINE CLEAR; BILIRUBIN, URINE NEGATIVE (NEGATIVE); COLOR,URINE PALE YELLOW; GLUCOSE, URINE (UA) NEGATIVE (NEGATIVE); KETONES,URINE NEGATIVE (NEGATIVE); LEUKOCYTE ESTERASE ,URINE 1+ (NEGATIVE); NITRITE,URINE NEGATIVE (NEGATIVE); PH,URINE 6 (4.5-8.0); PROTEIN,URINE NEGATIVE (NEGATIVE); UROBILINOGEN,URINE NORMAL MG/DL (0.0-1.0)
[2018-04-13 14:49] LABS: BASOPHILS % (AUTO) 0.3 % (0.0-2.0); EOSINOPHILS % (AUTO) 1.4 % (0.0-3.0); HEMATOCRIT 43.3 % (37.0-47.0); HEMOGLOBIN 14.5 G/DL (12.0-16.0); LYMPHOCYTES % (AUTO) 12.6 % (20.0-45.0); MEAN CORPUSCULAR VOLUME 99 FL (80-99); MONOCYTES % (AUTO) 6.5 % (1.0-10.0); NEUTROPHILS % (AUTO) 79.1 % (45.0-75.0); PLATELET COUNT 210 K/UL (150-450); RED BLOOD COUNT 4.37 M/UL (4.20-5.40); RED CELL DISTRIBUTION WIDTH 11.1 % (11.6-14.8); WHITE BLOOD COUNT 6.2 K/UL (4.8-10.8)
[2018-04-13 14:59] LABS: ANION GAP 10 mmol/L (5-15); BLOOD UREA NITROGEN 9 mg/dL (7-18); CALCIUM 8.4 MG/DL (8.5-10.1); CARBON DIOXIDE 24 MMOL/L (21-32); CHLORIDE 103 MMOL/L (98-107); CREATININE 0.7 MG/DL (0.55-1.30); POTASSIUM 3.5 MMOL/L (3.5-5.1); SODIUM 137 MMOL/L (136-145)
[2018-04-13 15:10] LABS: ALANINE AMINOTRANSFERASE 15 U/L (12-78); ALBUMIN 3.8 G/DL (3.4-5.0); ALKALINE PHOSPHATASE 81 U/L (46-116); ASPARTATE AMINO TRANSFERASE 15 U/L (15-37); BILIRUBIN,TOTAL 1.2 MG/DL (0.2-1.0); CREATINE KINASE 87 U/L (26-308)
[2018-04-13] MEDS ORDERED: Ketorolac 30mg Inj IV ONE (15:15)
--- NOTE | 2018-04-13 15:28 | Emergency Room Report ---
History of Present Illness General Chief Complaint: Abdominal Pain Source: Patient Present Illness HPI 27-year-old female presents to the emergency department complaining of 9 out of 10 in severity localized lower abdominal/uterine cramping 2 days. Patient reports associated nausea she denies constipation, diarrhea or episodes of vomiting. Patient states that she has a history of having very painful periods with similar symptoms however she was placed on the Depo shot and her symptoms resolved. Patient states that they have now returned she has not been on control for over 3 months. Patient denies fevers or chills, recent travel or ill contacts. Denies dysuria, hematuria, urinary frequency or urgency. Patient denies . Denies vaginal bleeding or discharge. Patient states she is not due for her period for another week. Allergies: Coded Allergies: No Known Allergies (Unverified , 06/02/13) Patient History Past Medical History: see triage record Past Surgical History: none Pertinent Family History: none Now: No Reviewed Nursing Documentation: PMH: Agreed; PSxH: Agreed Nursing Documentation-PMH Hx Cardiac Problems: No Hx Hypertension: No Hx Pacemaker: No Hx Asthma: Yes Hx COPD: No Hx Diabetes: No Hx Cancer: No Hx Gastrointestinal Problems: No Hx Dialysis: No Hx Neurological Problems: Yes - anxiety Hx Cerebrovascular Accident: No Hx Seizures: No Review of Systems All Other Systems: negative except mentioned in HPI Physical Exam Vital Signs Date Time Temp Pulse Resp B/P (MAP) Pulse Ox O2 Delivery O2 Flow Rate FiO2 04/13/18 14:08 98.8 97 18 109/46 96 Room Air 98.8 Sp02 EP Interpretation: reviewed, normal General Appearance: no apparent distress, alert, GCS 15, non-toxic Head: normocephalic, atraumatic Eyes: bilateral eye normal inspection, bilateral eye PERRL ENT: hearing grossly normal, normal voice Neck: full range of motion Respiratory: lungs clear, normal breath sounds, speaking full sentences Cardiovascular #1: regular rate, rhythm Gastrointestinal: normal bowel sounds, non tender, soft, non-distended, no guarding, no rebound Rectal: deferred Genitourinary: normal inspection, no CVA tenderness, adnexa normal Musculoskeletal: back normal, gait/station normal, normal range of motion, non- tender Neurologic: alert, oriented x3, responsive, motor strength/tone normal, sensory intact, normal gait, speech normal, grossly normal Psychiatric: judgement/insight normal Skin: normal color, no rash, warm/dry, well hydrated Medical Decision Making PA Attestation Dr. gaona is my supervising Physician whom patient management has been discussed with. Diagnostic Impression: Primary Impression: Dysmenorrhea ER Course 27-year-old female presents to the emergency department complaining of 9 out of 10 in severity localized lower abdominal/uterine cramping 2 days. Patient reports associated nausea she denies constipation, diarrhea or episodes of vomiting. Patient states that she has a history of having very painful periods with similar symptoms however she was placed on the Depo shot and her symptoms resolved. Patient states that they have now returned she has not been on control for over 3 months. Patient denies fevers or chills, recent travel or ill contacts. Denies dysuria, hematuria, urinary frequency or urgency. Patient denies . Denies vaginal bleeding or discharge. Patient states she is not due for her period for another week. Ddx considered but are not limited to Diverticulitis, acute appy, GE,UTI, ectopic, PID, ovarian cyst or torsion just to name a few. Vital signs: are WNL, pt. is afebrile H&PE are most consistent with Dysmenorrhea, no evidence of acute abdomen, no CVA tenderness, ORDERS: CBC, CMP, lipase, UA, Urine HCG: WNL all unremarkable. ED INTERVENTIONS: -- 1000NS -- Zofran 4mg. DISCHARGE: At this time pt. is stable for d/c to home. Will provide printed patient care instructions, and any necessary prescriptions. Care plan and follow up instructions have been discussed with the patient prior to discharge. Labs Test 04/13/18 14:24 04/13/18 14:42 Urine Color Pale yellow Urine Appearance Clear Urine pH 6 (4.5-8.0) Urine Specific [place] 1.010 (1.005-1.035) Urine Protein Negative (NEGATIVE) Urine Glucose (UA) Negative (NEGATIVE) Urine Ketones Negative (NEGATIVE) Urine Occult Blood Negative (NEGATIVE) Urine Nitrite Negative (NEGATIVE) Urine Bilirubin Negative (NEGATIVE) Urine Urobilinogen Normal MG/DL (0.0-1.0) Urine Leukocyte Esterase 1+ (NEGATIVE) Urine RBC 0-2 /HPF (0 - 2) Urine WBC 0-2 /HPF (0 - 2) Urine Squamous Epithelial Cells Few /LPF (NONE/OCC) Urine Bacteria Occasional /HPF (NONE) Urine HCG, Qualitative Negative (NEGATIVE) White Blood Count 6.2 K/UL (4.8-10.8) Red Blood Count 4.37 M/UL (4.20-5.40) Hemoglobin 14.5 G/DL (12.0-16.0) Hematocrit 43.3 % (37.0-47.0) Mean Corpuscular Volume 99 FL (80-99) Mean Corpuscular Hemoglobin 33.2 PG (27.0-31.0) Mean Corpuscular Hemoglobin Concent 33.5 G/DL (32.0-36.0) Red Cell Distribution Width 11.1 % (11.6-14.8) Platelet Count 210 K/UL (150-450) Mean Platelet Volume 8.4 FL (6.5-10.1) Neutrophils (%) (Auto) 79.1 % (45.0-75.0) Lymphocytes (%) (Auto) 12.6 % (20.0-45.0) Monocytes (%) (Auto) 6.5 % (1.0-10.0) Eosinophils (%) (Auto) 1.4 % (0.0-3.0) Basophils (%) (Auto) 0.3 % (0.0-2.0) Sodium Level 137 MMOL/L (136-145) Potassium Level 3.5 MMOL/L (3.5-5.1) Chloride Level 103 MMOL/L (98-107) Carbon Dioxide Level 24 MMOL/L (21-32) Anion Gap 10 mmol/L (5-15) Blood Urea Nitrogen 9 mg/dL (7-18) Creatinine 0.7 MG/DL (0.55-1.30) Estimat Glomerular Filtration Rate > 60 mL/min (>60) Glucose Level 102 MG/DL (74-106) Calcium Level 8.4 MG/DL (8.5-10.1) Total Bilirubin 1.2 MG/DL (0.2-1.0) Direct Bilirubin 0.3 MG/DL (0.0-0.3) Aspartate Amino Transf (AST/SGOT) 15 U/L (15-37) Alanine Aminotransferase (ALT/SGPT) 15 U/L (12-78) Alkaline Phosphatase 81 U/L (46-116) Total Creatine Kinase 87 U/L (26-308) Total Protein 7.5 G/DL (6.4-8.2) Albumin 3.8 G/DL (3.4-5.0) Globulin 3.7 g/dL Albumin/Globulin Ratio 1.0 (1.0-2.7) Last Vital Signs Date Time Temp Pulse Resp B/P (MAP) Pulse Ox O2 Delivery O2 Flow Rate FiO2 04/13/18 15:15 98.8 04/13/18 14:21 84 18 109/46 96 Room Air Disposition: HOME, SELF-CARE Condition: Stable Scripts Ondansetron (Zofran) 4 Mg Tablet 4 MG ORAL Q6H PRN for Nausea & Vomiting, #15 TAB Prov: Suzi Jauregui 04/13/18 Ibuprofen* (MOTRIN*) 800 Mg Tablet 800 MG ORAL THREE TIMES A DAY, #20 TAB 0 Refills Prov: Suzi Jauregui 04/13/18 Norethindrone-E.estradiol-Iron (Blisovi Fe 1-20 Tablet) 1 Each Tablet 1 EACH PO DAILY for 30 Days, #1 PACK 2 Refills Prov: Suzi Jauregui 04/13/18 Referrals: KEIRY SANTOS,REFERRING (PCP) Suzi Jauregui Apr 13, 2018 15:28
[2018-04-13 15:34] LABS: BILIRUBIN,DIRECT 0.3 MG/DL (0.0-0.3)
[2018-04-13] MEDS ORDERED: ZOFRAN4 M1 ORAL (15:45)
[2018-04-13] MEDS ORDERED: IBUPROFEN800 MG ORAL (15:45)
[2018-04-13] MEDS ORDERED: BLISOVI FE 1-21 EACH PO (15:45)
[2018-04-13 16:56] VITALS: BP 112/52
== END 2018-04-13 16:57 | disposition home or self-care (01) ==
LOC: EMR 14:22
DX: N94.6 Dysmenorrhea, unspecified (principal); J45.909 Unspecified asthma, uncomplicated
CPT/HCPCS: 36415; 80053; 81003; 81025; 82248; 82550; 85025; 96361; 96374; 99284; J1885

== ENCOUNTER 2018-09-03 17:01 | Emergency (ER) | payer MEDICAID ==
[~2018-09-03] VITALS: Ht 175.3 cm; Wt 62.1 kg
[~2018-09-03 17:01] MED LIST changes: +BLISOVI FE 1-21 EACH PO; +IBUPROFEN800 MG ORAL; +ZOFRAN4 M1 ORAL
[2018-09-03 17:44] VITALS: BP 127/75
[2018-09-03] MEDS ORDERED: PEPCID AC20 M2 PO (17:55)
[2018-09-03] MEDS ORDERED: CLARITIN-D 121 EAC1 ORAL (17:55)
[2018-09-03] MEDS ORDERED: BETAMETHASONE D15 GM TP (17:55)
[2018-09-03 18:31] VITALS: BP 130/77
--- NOTE | 2018-09-03 20:06 | Emergency Room Report ---
History of Present Illness General Chief Complaint: Upper Respiratory Illness Source: Patient Present Illness HPI Patient is a 28-year-old female presented after increased cough and nasal congestion. Patient reports having additionally a rash to her left lower extremity. Patient stated this is been present for several weeks. Patient reports that this was itchy. She denies any fever. She had not been having any vomiting. Allergies: Coded Allergies: No Known Allergies (Unverified , 06/02/13) Patient History Last Menstrual Period: 09/01/18 Now: No Nursing Documentation-[facility] Past Medical History: No History, Except For Hx Cardiac Problems: No Hx Hypertension: No Hx Pacemaker: No Hx Asthma: Yes Hx COPD: No Hx Diabetes: No Hx Cancer: No Hx Gastrointestinal Problems: No Hx Dialysis: No Hx Neurological Problems: Yes - anxiety Hx Cerebrovascular Accident: No Hx Seizures: No Physical Exam Vital Signs Date Time Temp Pulse Resp B/P (MAP) Pulse Ox O2 Delivery O2 Flow Rate FiO2 09/03/18 17:08 98.4 62 20 108/69 97 Room Air 09/03/18 17:44 97 Medical Decision Making Diagnostic Impression: Primary Impression: Upper respiratory infection Additional Impression: Lichen simplex chronicus ER Course Patient presented for cough. Differential diagnosis included but was not limited to bronchitis, pneumonia, pulmonary embolism, pericarditis, asthma, foreign body. Patient has a benign exam and does not appear to require any further imaging or laboratory testing at this time. Patient was additionally noted to have some rash to her lower extremities.This appears to be a patch of thickened skin with some lichenification. Patient was prescribed topical steroid cream. She is advised dermatology follow-up. Patient appears to have an upper respiratory infection. She was given medications for symptomatic treatment. The patient is advised to follow up with primary care doctor. Patient is advised to return if any worsening condition or if any changes in status that are concerning. This report is dictated with [employer] heel painter software which may occasionally lead to discrepancies related to use of this software. Last Vital Signs Date Time Temp Pulse Resp B/P (MAP) Pulse Ox O2 Delivery O2 Flow Rate FiO2 09/03/18 18:31 98.0 20 130/77 98 Room Air 09/03/18 17:44 75 97 Status: improved Disposition: HOME, SELF-CARE Condition: Stable Scripts Betamet Diprop/Prop Gly (BETAMETHASONE DP AUG 0.05% CRM) 15 Gm Cream..g. 15 GM TP DAILY for 4 Days, #15 GM Prov: Alton Hobbs MD 09/03/18 Famotidine (PEPCID AC) 20 Mg Tablet 20 MG PO DAILY, #30 TAB Prov: Alton Hobbs MD 09/03/18 Loratadine/Pseudoephedrine (CLARITIN-D 12 HOUR TABLET) 1 Each Tab.er.12h 1 TAB ORAL EVERY 12 HOURS, #30 TAB Prov: Alton Hobbs MD 09/03/18 Referrals: KEIRY SANTOS,REFERRING (PCP) Patient Instructions: Upper Respiratory Infection, Adult, Pruritus Alton Hobbs MD Sep 03, 2018 20:06
== END 2018-09-03 18:33 | disposition home or self-care (01) ==
LOC: EMR 17:54
DX: J06.9 Acute upper respiratory infection, unspecified (principal); L28.0 Lichen simplex chronicus; J45.909 Unspecified asthma, uncomplicated
CPT/HCPCS: 99283

== ENCOUNTER 2019-04-30 10:23 | Emergency (ER) | payer MEDICAID ==
[~2019-04-30] VITALS: Ht 175.3 cm; Wt 60.8 kg
[~2019-04-30 10:23] MED LIST changes: +BETAMETHASONE D15 GM TP; +CLARITIN-D 121 EAC1 ORAL; +PEPCID AC20 M2 PO
--- NOTE | 2019-04-30 10:25 | NUR ---
ED Nurse Note: Patient walked in to ER due to body ache, headache, non productive cough and congestion x 3-4 days ago. Afebrile. Has hx of asthma and anxiety. Alert and oriented x4, verbally repsonsive. Breathing even and unlabored.
[2019-04-30] MEDS ORDERED: ALBUTEROL SULF8.5 GM INH (10:49)
--- NOTE | 2019-04-30 10:51 | Emergency Room Report ---
History of Present Illness General Chief Complaint: Flu Like Symptoms Source: Patient Present Illness HPI Disclaimer: Please note that this report is being documented using [employer] technology. This can lead to erroneous entry secondary to incorrect interpretation by the dictating instrument. HPI: 28-year-old female with history of asthma presents for flulike illness. She notes 3 to 4 days of nasal congestion, postnasal drip, nonproductive cough, subjective fever and chills, diffuse arthralgias and myalgias. Denies rash. Denies vomiting, diarrhea, dysuria, hematuria, vaginal bleeding or vaginal discharge. LMP approximately 3 weeks ago. Requesting albuterol refill but no respiratory symptoms of shortness of breath or chest pain at this time. Works at the [employer]. Unsure about sick contacts. PMH: Asthma PSH: None Allergies: None Social Hx: Alcohol use Allergies: Coded Allergies: No Known Allergies (Unverified , 06/02/13) Patient History Last Menstrual Period: 03/30/19 Now: No Nursing Documentation-PMH Hx Cardiac Problems: No Hx Hypertension: No Hx Pacemaker: No Hx Asthma: Yes Hx COPD: No Hx Diabetes: No Hx Cancer: No Hx Gastrointestinal Problems: No Hx Dialysis: No Hx Neurological Problems: Yes - anxiety Hx Cerebrovascular Accident: No Hx Seizures: No Review of Systems All Other Systems: negative except mentioned in HPI Physical Exam Vital Signs Date Time Temp Pulse Resp B/P (MAP) Pulse Ox O2 Delivery O2 Flow Rate FiO2 04/30/19 10:25 84 16 Room Air 04/30/19 10:25 98.8 126/80 (95) 98 General: Awake and alert, wearing a full [place] in the exam room HEENT: NC/AT. EOMI. moist mucous membranes Neck: Supple, trachea midline no lymphadenopathy Cardiovascular: RRR. S1 and S2 normal. No murmur appreciated Resp: Normal work of breathing. No cough, wheezing or crackles appreciated Abdomen: Abdomen is soft, nondistended. Nontender Skin: Intact. No abrasions, laceration or rash over the exposed skin MSK: Normal tone and bulk. Moving all extremities. No obvious deformity. Tenderness to palpation over almost all joints in major muscle groups Neuro: Awake and alert. Mentating appropriately. Medical Decision Making Diagnostic Impression: Primary Impression: Upper respiratory infection ER Course This is a otherwise healthy 28-year-old female presenting with several days worsening arthralgias, myalgias, nasal congestion, postnasal drip and nonproductive cough. Likely, this is a viral syndrome likely from an upper respiratory infection. The patient is afebrile here in the emergency department and overall well-appearing though somewhat fatigued. Can discharge home with supportive care and I have given her several days excuse from work so that she can recover fully. We discussed reasons to return to the emergency department as well as need for follow-up within the next 1 to 2 weeks with 1 of the clinics that was included in her discharge paperwork. I did refill her albuterol inhaler at the patient request. She understands and agrees with this treatment plan was discharged home Last Vital Signs Date Time Temp Pulse Resp B/P (MAP) Pulse Ox O2 Delivery O2 Flow Rate FiO2 04/30/19 10:25 98.8 84 16 126/80 (95) 98 Room Air Disposition: HOME, SELF-CARE Condition: Stable Scripts Albuterol Sulfate* (ALBUTEROL SULFATE MDI*) 8.5 Gm Hfa.aer.ad 2 PUFF INH Q4H, #1 EA 0 Refills Prov: Elvis Carter MD 04/30/19 Referrals: [facility] Departure Forms: Return to Work Return to Work in (Days): 4 Return to Work Date: May 04, 2019 Patient Instructions: Upper Respiratory Infection, Adult Additional Instructions: Please follow-up with your primary care doctor from 1 of the clinics listed here in your discharge paperwork. You are likely experiencing symptoms from an upper respiratory infection, most likely viral, which should resolve in the next few days. If your symptoms do not improve over the next 4 to 5 days or if they suddenly worsen, if you are unable to stay hydrated, develop significant vomiting or diarrhea or any worsening symptoms please return to the emergency department for reevaluation. I have refilled your albuterol inhaler to use as needed. Elvis Carter MD Apr 30, 2019 10:51
[2019-04-30 10:54] VITALS: BP 126/80
--- NOTE | 2019-04-30 10:54 | NUR ---
ED Nurse Note: Pt cleared by ERMD for discharge. DC instructions/prescription was given and explained to pt and verbalized understanding of teachings. All medical deviecs such as ID band removed. Pt is AAO x4, ambulatory and left with all personal belongings.
== END 2019-04-30 10:54 | disposition home or self-care (01) ==
LOC: EMR 10:43
DX: J06.9 Acute upper respiratory infection, unspecified (principal); J45.909 Unspecified asthma, uncomplicated; F41.9 Anxiety disorder, unspecified
CPT/HCPCS: 99282

== ENCOUNTER 2019-08-18 19:27 | Emergency (ER) | payer MEDICAID ==
[~2019-08-18] VITALS: Ht 175.3 cm; Wt 63.0 kg
[2019-08-18 19:50] VITALS: BP 129/66
--- NOTE | 2019-08-18 19:50 | NUR ---
ED Nurse Note: PT walked in to ED for C/O swelling around her lip area since 4 days ago. denies any allergies. PT is alert x4
--- NOTE | 2019-08-18 20:19 | NUR ---
Note calvinone in EDM - 08/18/19 at 2024 by MYLA ER DISCHARGE NOTE: Patient is cleared to be discharged per ERMD, pt is aox4, on room air, with stable vital signs. pt was given dc and prescription instructions, pt was able to verbalize understanding, pt id band removed without complications. pt is able to ambulate with steady gait. pt took all belongings.
--- NOTE | 2019-08-18 20:25 | Emergency Room Report ---
History of Present Illness General Chief Complaint: Skin Rash/Abscess Source: Patient Present Illness HPI 29-year-old female presents to the emergency department complaining of itchy and swollen rash around the mouth that is been persistent x4 days. Patient reports history of allergies to several different types of toothpaste in the past which presented with similar symptoms. She denies any lesions or rashes inside of the mouth on the oral mucosa. Patient denies blisters, ulcers, bleeding of the gums or vesicles. She reports she has been applying vitamin D ointment with no relief of her symptoms. She states she is out of her daily allergy medication. She denies pain but reports 3/10 in severity swollen burning sensation. Pt. denies fevers, chills or swollen tender lymph nodes. Denies lesions/rashes elsewhere on the body. Denies new medications or body washes or creams. Denies swelling of the lips, tongue , throat or airway. Denies wheezing, or shortness of breath. Denies recent travel, recent illness or ill contacts. denies blisters, oral lesions, or sloughing of the skin. Allergies: Coded Allergies: No Known Allergies (Unverified , 06/02/13) Patient History Past Medical History: see triage record Past Surgical History: none Pertinent Family History: none Last Menstrual Period: currently on it Now: No Immunizations: UTD Reviewed Nursing Documentation: PMH: Agreed; PSxH: Agreed Nursing Documentation-PMH Past Medical History: No History, Except For Hx Cardiac Problems: No Hx Hypertension: No Hx Pacemaker: No Hx Asthma: Yes Hx COPD: No Hx Diabetes: No Hx Cancer: No Hx Gastrointestinal Problems: No Hx Dialysis: No Hx Neurological Problems: Yes - anxiety Hx Cerebrovascular Accident: No Hx Seizures: No Review of Systems All Other Systems: negative except mentioned in HPI Physical Exam Vital Signs Date Time Temp Pulse Resp B/P (MAP) Pulse Ox O2 Delivery O2 Flow Rate FiO2 08/18/19 19:44 99.1 98 18 129/66 (87) 97 Room Air Sp02 EP Interpretation: reviewed, normal General Appearance: no apparent distress, alert, GCS 15, non-toxic Head: normocephalic, atraumatic Eyes: bilateral eye normal inspection, bilateral eye PERRL ENT: hearing grossly normal, normal pharynx, no angioedema, normal voice, other - erythematous raised plaque in the perioral region and on the lower cheeks bilaterally. no blisters, vesicles, ulcers, crusting noted. No swelling of the lips or tongue. Neck: full range of motion Respiratory: chest non-tender, lungs clear, normal breath sounds, no respiratory distress, no accessory muscle use, no wheezing, speaking full sentences Cardiovascular #1: regular rate, rhythm, normal capillary refill Musculoskeletal: normal range of motion, gait/station normal, non-tender Neurologic: alert, motor strength/tone normal, oriented x3, sensory intact, responsive, speech normal Psychiatric: judgement/insight normal Skin: rash - erythematous raised plaque in the perioral region and on the lower cheeks bilaterally. no blisters, vesicles, ulcers, crusting noted. No swelling of the lips or tongue. Lymphatic: no adenopathy Medical Decision Making PA Attestation Dr. Carter Is my supervising Physician whom patient management has been discussed with. Diagnostic Impression: Primary Impression: Rash and other nonspecific skin eruption Additional Impression: Allergic dermatitis ER Course 29-year-old female presents to the emergency department complaining of itchy and swollen rash around the mouth that is been persistent x4 days. Patient reports history of allergies to several different types of toothpaste in the past which presented with similar symptoms. She denies any lesions or rashes inside of the mouth on the oral mucosa. Patient denies blisters, ulcers, bleeding of the gums or vesicles. She reports she has been applying vitamin D ointment with no relief of her symptoms. She states she is out of her daily allergy medication. She denies pain but reports 3/10 in severity swollen burning sensation. Pt. denies fevers, chills or swollen tender lymph nodes. Denies lesions/rashes elsewhere on the body. Denies new medications or body washes or creams. Denies swelling of the lips, tongue , throat or airway. Denies wheezing, or shortness of breath. Denies recent travel, recent illness or ill contacts. denies blisters, oral lesions, or sloughing of the skin. Ddx considered but are not limited to cellulitis, scabies, shingles, varicella, dermatitis, urticaria, eczema, tinea, viral exanthem, SJS Vital signs: are WNL, pt. is afebrile H&PE are most consistent with localized perioral dermatitis. No evidence of oral mucosal involvement, suspicion of impending airway compromise or anaphylaxis. ORDERS: none required at this time, the diagnosis is clinical ED INTERVENTIONS: None required at this time. -I do not identify an emergent condition at this time. With current presentation , pt. is stable for close outpatient follow up and conservative treatment. D/ w pt. to return promptly to ED with worsening or new symptoms.- Pt. verbalizes' understanding and agreement with proposed treatment plan. DISCHARGE: At this time pt. is stable for d/c to home. Will provide printed patient care instructions, and any necessary prescriptions. Care plan and follow up instructions have been discussed with the patient prior to discharge. Last Vital Signs Date Time Temp Pulse Resp B/P (MAP) Pulse Ox O2 Delivery O2 Flow Rate FiO2 08/18/19 20:19 99.0 88 18 125/71 98 Room Air Disposition: HOME, SELF-CARE Scripts Cetirizine Hcl* (ZYRTEC*) 10 Mg Tablet 10 MG ORAL DAILY, #30 TAB 0 Refills Prov: Suzi Jauregui 08/18/19 Diphenhydramine Hcl (BENADRYL ALLERGY) 25 Mg Tablet 25 MG PO Q6HR, #30 TAB Prov: Suzi Jauregui 08/18/19 Triamcinolone Acetonide (Triamcinolone Acetonide 0.5% Oint*) 15 Gm Oint...g. 1 APPLIC TP NEEDED, #15 GM Prov: Suzi Jauregui 08/18/19 Diphenhydramine Hcl/Zinc Acet (BENADRYL ITCH STOPPING CRM) 28.3 Gm Cream..g. 1 GM TP Q6HR, #28.3 GM Prov: Suzi Jauregui 08/18/19 Departure Forms: Return to Work Return to Work Date: Aug 20, 2019 Work Restrictions: None Other Restrictions: May return Sooner if Symptoms have resolved. Return to Full Activity: Aug 20, 2019 Patient Instructions: Rash Additional Instructions: Take medications as directed. Follow up with a Primary Care Provider for DERMATOLOGY / [employer] [place] in 3-5 days, even if your symptoms have resolved. Return sooner to ED if new symptoms occur, or current symptoms become worse. Do not drink alcohol, drive, or operate heavy machinery while taking Benadryl as this may cause drowsiness. - Please note that this Emergency Department Report was dictated using [employer]tunnel miner technology software, occasionally this can lead to erroneous entry secondary to interpretation by the dictation equipment. Suzi Jauregui Aug 18, 2019 20:25
[2019-08-18] MEDS ORDERED: BENADRYL ALLERG25 M1 PO (20:26)
[2019-08-18] MEDS ORDERED: ZYRTEC10 MG ORAL (20:26)
[2019-08-18] MEDS ORDERED: TRIAMCINOLONE A15 G3 TP (20:26)
[2019-08-18] MEDS ORDERED: BENADRYL ITCH28.3 G1 TP (20:26)
[2019-08-18 20:29] VITALS: BP 120/78
--- NOTE | 2019-08-18 20:29 | NUR ---
ER DISCHARGE NOTE: Patient is cleared to be discharged per ERMD, pt is aox4, on room air, with stable vital signs. pt was given dc and prescription instructions, pt was able to verbalize understanding, pt id band removed without complications. pt is able to ambulate with steady gait. pt took all belongings.
== END 2019-08-18 20:29 | disposition home or self-care (01) ==
LOC: EMR 20:18
DX: R21 Rash and other nonspecific skin eruption (principal); L23.9 Allergic contact dermatitis, unspecified cause
CPT/HCPCS: 99282